=== PATIENT | male | born 1940 | race Caucasian/White ===

== ENCOUNTER 2017-05-30 14:22 | Inpatient (IN) | payer MEDICARE, BC ==
[~2017-05-30] VITALS: Ht 170.2 cm; Wt 71.2 kg
--- NOTE | 2017-05-30 13:50 | NUR ---
Pt transferred from [facility] via ambulance with admitting dx of Right Hip Fx. A/o x 3. Aware of dx. C/o right hip tolerable pain. Placed on heart monitor, controlled A-Fib on rhythm. No signs of distress but pt is on continuous Oxygen 3L via N/C. Per ambulance, pt desat to RA. Routine admission assessment initiated. Dr. Karl Drummond and Hortencia Goode notified.
[2017-05-30] MEDS ORDERED: maalox PO (15:37)
[2017-05-30] MEDS ORDERED: DIME118C3 TP (15:37)
[2017-05-30] MEDS ORDERED: FURO-151 PO (15:37)
[2017-05-30] MEDS ORDERED: MIRT15TA PO (15:37)
[2017-05-30] MEDS ORDERED: LISI2.5T2 PO (15:37)
[2017-05-30] MEDS ORDERED: TAMS-3 PO (15:37)
[2017-05-30] MEDS ORDERED: PANT40TA2 PO (15:37)
[2017-05-30] MEDS ORDERED: ISOS60TA4 PO (15:37)
[2017-05-30] MEDS ORDERED: ROSU40TA PO (15:37)
[2017-05-30] MEDS ORDERED: DIGO125T PO (15:37)
[2017-05-30] MEDS ORDERED: ZOLP5TAB2 PO (15:37)
[2017-05-30] MEDS ORDERED: METO50TA3 PO (15:37)
[2017-05-30] MEDS ORDERED: ASPI-605 PO (15:37)
[2017-05-30] MEDS ORDERED: HYDR-3326 PO (15:37)
[2017-05-30] MEDS ORDERED: mom PO (15:37)
[2017-05-30] MEDS ORDERED: zofran IVP (15:37)
[2017-05-30] MEDS ORDERED: ACET-2154 PO (15:37)
[2017-05-30] MEDS ORDERED: RANO10003 PO (15:37)
[2017-05-30 15:44] VITALS: BP 111/51
[2017-05-30] MEDS ORDERED: Z GUARD REMEDY PASTE 57 GM TUBE TOP PRN (17:30)
[2017-05-30] MEDS ORDERED: ONDANSETRON 4 MG/2 ML VIAL IV PRN (17:30)
[2017-05-30] MEDS ORDERED: ZOLPIDEM 5 MG TABLET PO PRN (17:30)
[2017-05-30] MEDS ORDERED: ACETAMINOPHEN 325 MG TABLET PO PRN (17:30)
[2017-05-30] MEDS ORDERED: MAGNESIUM HYDROXIDE 30 ML LIQUID UDC PO PRN (17:30)
--- NOTE | 2017-05-30 18:02 | NUR ---
DR CLARK RETURNED PHONE CALL AND WILL FOLLOW UP PT.
--- NOTE | 2017-05-30 18:30 | NUR ---
CRITICAL LAB REPORT RECEIVED FROM AGATHA (PIEDAD) GINA 0.378. PAGED [id number] AND AWAITING ORDERS AT THIS TIME.
--- NOTE | 2017-05-30 18:57 | NUR ---
DR SALAS MADE AWARE OF CRITICAL TOPONIN VALUE 0.378. NO NEW ORDERS AND STATED CLEARED FOR SURGERY
--- NOTE | 2017-05-30 19:35 | NUR ---
RECEIVED PT'S A/A/O X4 W/DX OF RIGHT COMMINUTED INTERTROCHANTERIC FRACTURE OF THE RIGHT HIP;HX OF ESRD W/H/D,PT HAD LEFT ARM AV SHUNT(ALREADY GOT LAST H/D ON 05/29/17;[facility]),AWAITING FOR ORTHO CONSULT W/ TO COME TO SEE HIM TODAY.PER AM SHIFT RN STATED THAT PT HAD A CRITICAL LAB VALUE OF TROPONIN'S 0.378;POWER PRESS SUPERVISOR'S AWARE/NO INTERVENTION NEED UPON THIS TIME,PT'S STABLE CONDITION NOTED. CALLED AND SPOKE TO ME AT THIS TIME;NOTIFIED HIM ABOUT PT'S LAB AND CONDITION;MD'S AWARE AND STATED THAT IT'S OK.PT'S STILL ON TELEMETRY MONITORING NOTED.
[2017-05-30] MEDS: MORPHINE SULFATE 2 MG/1 ML DISP.SYRIN IV PRN (19:41)
[2017-05-30 20:12] VITALS: BP 108/62
[2017-05-30] MEDS: MIRTAZAPINE 15 MG TABLET PO SCH (21:01)
[2017-05-30] MEDS: ATORVASTATIN 40 MG TABLET PO SCH (21:01)
--- NOTE | 2017-05-30 21:45 | NUR ---
(ORTHO) CAME TO SEE PT AT THIS TIME,MEDICAL RECORD'S REVIEWED BY AND HE WENT TO VISITED PT;MD DISCUSSED ABOUT THE PLAN OF CARE AND HE INFORMED CONSENT TO PT,CONSENT FOR SURGERY'S SIGNED BY PT,PT VERBALIZED UNDERSTANDING ABOUT THE RISK AND BENEFIT OF SX IN AM NOTED.SNACK'S GIVEN TO PT REQUEST;PT HAD VERY GOOD ORAL INTAKE UPON THIS TIME.STABLE CONDITION AND V/S.TELEMETRY'S A.FIB W/BBB.PT DENIED OF PAIN OR ANY DISCOMFORT.CONTINUED MONITORING TO PT.
[2017-05-30 22:41] LABS: BASOPHILS # (AUTO) 0.1 K/uL (0.0-8.0); EOSINOPHILS # (AUTO) 0.2 K/uL (0.0-0.7); EOSINOPHILS % (AUTO) 2.3 % (0.0-7.0); HEMATOCRIT 29.9 % (40-50); HEMOGLOBIN 9.9 G/DL (14.0-18.0); LYMPHOCYTES # (AUTO) 1.1 K/UL (0.8-4.8); MEAN CORPUSCULAR HGB CONC 33 g/dL (32.0-37.0); MEAN CORPUSCULAR VOLUME 99.9 FL (82.0-92.0); NEUTROPHILS # (AUTO) 6.8 K/UL (1.8-8.9); NEUTROPHILS % (AUTO) 73.7 % (38.5-71.5); PLATELET COUNT (AUTO) 190 K/UL (150-450); RED BLOOD CELL COUNT(AUTO) 2.99 MIL/UL (4.7-6.1); WHITE BLOOD COUNT (AUTO) 9.1 K/UL (4.0-11.2)
--- NOTE | 2017-05-31 | NUR ---
KEPT PT NPO AFTER MIDNIGHT 'S ORDER;STARTED IVF:NSS @ 60 ML/HR( 'S ORDER) WHILE NPO;EDUCATED TO PT,HE VERBALIZED UNDERSTANDING AND COOPERATIVE NOTED.PT DENIED OF PAIN OR ANY DISCOMFORT.CONTINUED MONITORING TO PT.
[2017-05-31 00:08] VITALS: BP 101/56
[2017-05-31] MEDS: MORPHINE SULFATE 2 MG/1 ML DISP.SYRIN IV PRN (01:24)
[2017-05-31 04:22] VITALS: BP 100/52
--- NOTE | 2017-05-31 06:00 | NUR ---
EDUCATED TO PT TO GIVE AM CARE AT THIS TIME;PT STATED THAT"I DON'T WANT TO DO IT NOW.IT'S COLD AND MY SURGERY IS 2 PM.IT'S TOO EARLY TO DO IT";OFFERED PT TO CLEAN HIS FACE& UPPER EXTREMITIES WITH WARM WATER,HE SAID"IT'S OK";PT'S COOPERATIVE DURING THIS TIME,DENIED OF PAIN AND STATED THAT"I DON'T NEED MORPHINE LONG I DON'T MOVE,I'M OK".NO DISTRESS NOTED IN THE SHIFT,KEPT NPO SINCE AFTER MIDNIGHT FOR SURGERY TODAY MD'S ORDER.KEPT COMFORT.MAINTAINED IVF ORDER,NO INFILTRATION AT THE SITE NOTED.TELEMETRY'S A.FIB W/BBB.
[2017-05-31 06:40] LABS: BASOPHILS % (AUTO) 0.5 % (0.0-2.0); EOSINOPHILS # (AUTO) 0.2 K/uL (0.0-0.7); EOSINOPHILS % (AUTO) 2.2 % (0.0-7.0); HEMATOCRIT 29.3 % (40-50); HEMOGLOBIN 9.8 G/DL (14.0-18.0); LYMPHOCYTES # (AUTO) 1.3 K/UL (0.8-4.8); LYMPHOCYTES % (AUTO) 14.6 % (20.5-51.5); MEAN CORPUSCULAR HEMOGLOBIN 33.4 UUG (27.0-31.0); MEAN CORPUSCULAR HGB CONC 33 g/dL (32.0-37.0); MEAN CORPUSCULAR VOLUME 100.4 FL (82.0-92.0); MONOCYTES # (AUTO) 1.1 K/UL (0.1-1.30); MONOCYTES % (AUTO) 12.7 % (0.0-11.0); NEUTROPHILS # (AUTO) 6.3 K/UL (1.8-8.9); PLATELET COUNT (AUTO) 197 K/UL (150-450); RED BLOOD CELL COUNT(AUTO) 2.92 MIL/UL (4.7-6.1); WHITE BLOOD COUNT (AUTO) 8.9 K/UL (4.0-11.2)
--- NOTE | 2017-05-31 07:00 | NUR ---
PATIENT RECEIVED WITH ON GOING HEMODIALYSIS, AWAKE ALERT AND ORIENTED X3 NO SIGNS OF ACUTE PAIN OR DISTRESS, CONTROLLED A-FIB ON MONITOR. KEPT NPO FOR SURGERY AT 2PM
[2017-05-31 07:11] LABS: ALANINE AMINOTRANSFERASE 77 U/L (16-63); ALKALINE PHOSPHATASE 56 U/L (50-136); ASPARTATE AMINOTRANSFERASE 63 U/L (15-37); BILIRUBIN,TOTAL 0.6 mg/dL (0.2-1.0); CARBON DIOXIDE 30 mmol/L (21-32); CHLORIDE 95 mmol/L (98-107); CHOLESTEROL 68 mg/dL (<200); CREATININE 6.6 mg/dL (0.6-1.3); GLUCOSE 129 mg/dL (74-106); HDL CHOLESTEROL 29 mg/dL (40-60); MAGNESIUM 2.3 mg/dL (1.8-2.4); PHOSPHOROUS 5.4 mg/dL (2.5-4.9); POTASSIUM 4.1 mmol/L (3.5-5.1); TOTAL PROTEIN, SERUM 6.3 g/dL (6.4-8.2); TRIGLYCERIDES 111 MG/DL (30-150); UREA NITROGEN, BLOOD 54 mg/dL (7-18)
[2017-05-31 07:23] LABS: THYROID STIMULATING HORMONE 7.613 mIU/mL (0.358-3.740)
[2017-05-31] MEDS ORDERED: SEVOFLURANE 250 ML BOTTLE IH ONE (07:49)
[2017-05-31] MEDS ORDERED: CEFAZOLIN 1 G VIAL MC ONE (07:49)
[2017-05-31] MEDS ORDERED: IV NORMAL SALINE 1000 ML BAG IV ONE (07:49)
[2017-05-31] MEDS ORDERED: NEOSTIGMINE METHYLSULFATE 10 MG/10 ML VIAL IV ONE (07:49)
[2017-05-31] MEDS ORDERED: ONDANSETRON 4 MG/2 ML VIAL IV ONE (07:49)
[2017-05-31] MEDS ORDERED: DEXAMETHASONE SOD PHOSPHATE 4 MG INJ IV ONE (07:49)
[2017-05-31] MEDS ORDERED: PHENYLEPHRINE 10 MG/1 ML VIAL MC ONE (07:49)
[2017-05-31] MEDS ORDERED: GLYCOPYRROLATE 0.2 MG/ML VIAL MC ONE (07:49)
[2017-05-31] MEDS: TAMSULOSIN HCL 0.4 MG CAP.SR.24H PO SCH (09:00)
[2017-05-31] MEDS: ASPIRIN EC 81 MG TABLET.DR PO SCH (09:00)
[2017-05-31] MEDS: LISINOPRIL 5 MG TABLET PO SCH (09:00)
[2017-05-31] MEDS: FUROSEMIDE 40 MG TABLET PO SCH ×2 (09:00→15:30)
--- NOTE | 2017-05-31 09:43 | NUR ---
SEEN BY ANESTHESIA DR RAMOS MADE AWARE OF LABS, AND ALSO SAID OK TO GIVE LOPRESSOR, IMDUR AND HOLD LASIX
--- NOTE | 2017-05-31 10:00 | NUR ---
HD COMPLETED TOLERATED WELL. TOTAL OUTPUT 500
[2017-05-31 10:43] VITALS: BP 99/57
[2017-05-31] MEDS: DIGOXIN 125 MCG TABLET PO SCH (11:13)
--- NOTE | 2017-05-31 12:00 | NUR ---
PATIENT OFFERED THE SECOND TIME FOR AM CARE, COMPLETELY REFUSED, NO SIGNS OF SCUTE PAIN. NO SIGNS OF DISTRESS, CONTROLLED A-FIB ON MONITOR
[2017-05-31] MEDS: ISOSORBIDE MONONITRATE 60 MG TAB.SR.24H PO SCH (12:39)
[2017-05-31] MEDS: METOPROLOL TARTRATE 50 MG TABLET PO SCH ×2 (12:40→17:00)
[2017-05-31] MEDS ORDERED: POLYMYXIN B SULFATE 500,000 UNITS, BACITRACIN 50,000 UNITS, NORMAL SALINE 20 ML MC ONE ×3 (13:30)
[2017-05-31] MEDS ORDERED: HYDROMORPHONE 2 MG/1 ML DISP.SYRIN ONE (13:42)
[2017-05-31] MEDS ORDERED: ROCURONIUM BROMIDE 50 MG/5 ML VIAL ONE (13:42)
[2017-05-31] MEDS ORDERED: MIDAZOLAM HCL 2 MG/2 ML VIAL ONE (13:42)
[2017-05-31] MEDS ORDERED: ETOMIDATE 20 MG/10 ML VIAL ONE (13:42)
[2017-05-31] MEDS ORDERED: SUCCINYLCHOLINE CHLORIDE 200 MG/10 ML VIAL ONE (13:43)
--- NOTE | 2017-05-31 14:07 | NUR ---
PATIENT WENT TO OR ACCOMPANIED BY STAFF FOR RIGHT HIP REPLACEMENT, REFUSED JEWELRY TO BE REMOVED REPORT GIVEN TO OR STAFF
--- NOTE | 2017-05-31 15:31 | NUR ---
LASIX NOT GIVEN PATIENT STILL IN OR
--- NOTE | 2017-05-31 15:42 | NUR ---
PATIENT STILL IN OR
[2017-05-31] MEDS ORDERED: IV NS 1000 ML 1,000 ML IV PRN ×2 (17:30)
[2017-05-31] MEDS ORDERED: HYDROCODONE/APAP 5-325MG TABLET PO PRN (17:30)
--- NOTE | 2017-05-31 18:02 | NUR ---
PATIENT STILL IN RECOVERY
--- NOTE | 2017-05-31 18:26 | NUR ---
BACK FROM SURGERY POST ORIF RIGHT HIP AWAKE ALERT AND RESPONSIVE, DENIES PAIN OR SOB. DRESSING RIGHT HIP INTACT, ABLE TO WIGGLE RIGHT TOES AND WITH GOOD CAPILLARY REFILL, REMAINS A-FIB CONTROLLED AT A RATE OF 85 OBSERVED
[2017-05-31 18:28] VITALS: BP 99/61
--- NOTE | 2017-05-31 19:00 | NUR ---
Bedside reporting with LEIF Reyez. Received patient on bed appears sleeping but easily arousable when name called. Denies any pain at this time. Right hip dressing clean, dry and intact. Capillary refill good with good pedal pulses. Safety measures and afll precaution maintained. Continue care as planned.
[2017-05-31 19:16] LABS: BASOPHILS % (AUTO) 0.2 % (0.0-2.0); EOSINOPHILS # (AUTO) 0.2 K/uL (0.0-0.7); EOSINOPHILS % (AUTO) 1.7 % (0.0-7.0); HEMATOCRIT 27.7 % (40-50); HEMOGLOBIN 9.3 G/DL (14.0-18.0); LYMPHOCYTES # (AUTO) 0.4 K/UL (0.8-4.8); LYMPHOCYTES % (AUTO) 3.6 % (20.5-51.5); MEAN CORPUSCULAR HEMOGLOBIN 33.8 UUG (27.0-31.0); MEAN CORPUSCULAR HGB CONC 34 g/dL (32.0-37.0); MEAN CORPUSCULAR VOLUME 100.4 FL (82.0-92.0); MONOCYTES # (AUTO) 0.5 K/UL (0.1-1.30); MONOCYTES % (AUTO) 4.5 % (0.0-11.0); NEUTROPHILS # (AUTO) 9.7 K/UL (1.8-8.9); PLATELET COUNT (AUTO) 157 K/UL (150-450); RED BLOOD CELL COUNT(AUTO) 2.76 MIL/UL (4.7-6.1); WHITE BLOOD COUNT (AUTO) 10.8 K/UL (4.0-11.2)
[2017-05-31 19:19] LABS: CARBON DIOXIDE 28 mmol/L (21-32); CHLORIDE 102 mmol/L (98-107); CREATININE 4.8 mg/dL (0.6-1.3); GLUCOSE 151 mg/dL (74-106); POTASSIUM 4.5 mmol/L (3.5-5.1); UREA NITROGEN, BLOOD 37 mg/dL (7-18)
[2017-05-31 20:00] VITALS: BP 95/51
[2017-05-31] MEDS: MIRTAZAPINE 15 MG TABLET PO SCH (20:48)
[2017-05-31] MEDS: ATORVASTATIN 40 MG TABLET PO SCH (20:48)
[2017-05-31] MEDS ORDERED: ENOXAPARIN SODIUM 40 MG/0.4 ML DISP.SYRIN SQ SCH (21:00)
[2017-05-31] MEDS ORDERED: CEFAZOLIN 1 G in PREMIXED 1 EACH IV SCH (22:00)
[2017-05-31] MEDS: MORPHINE SULFATE 4 MG/1 ML DISP.SYRIN IV PRN (23:11)
--- NOTE | 2017-05-31 23:11 | NUR ---
Medicated for pain after been turned and repositioned for comfort. Will monitor.
[2017-06-01] VITALS: BP 140/60
[2017-06-01] MEDS: MORPHINE SULFATE 4 MG/1 ML DISP.SYRIN IV PRN ×2 (03:03→21:39)
[2017-06-01 04:00] VITALS: BP 104/56
--- NOTE | 2017-06-01 05:40 | NUR ---
Slept at long interval. Medicated for pain with relief. No further complaint presented. Made comfortable at all times. No active bleedingnoted from surgical site. No significant event reported all night. Continue care as planned.
--- NOTE | 2017-06-01 06:49 | NUR ---
Bedside reporting with LEIF Reyez
--- NOTE | 2017-06-01 07:20 | NUR ---
AWAKE ALERT AND VERBALLY RESPONSIVE, NO SIGNS OF DISTRESS OR ACUTE PAIN, ABLE TO WIGGLE TOES AND WITH GOOD SENSATION AND GOOD CAPILLARY REFILL RIGHT LEG, DRESSING RIGHT HIP INTACT NO SIGNS OF BLEEDING, REMAINS A-FIB CONTROLLED ON MONITOR
[2017-06-01] MEDS: LISINOPRIL 5 MG TABLET PO SCH (08:53)
[2017-06-01] MEDS: ASPIRIN EC 81 MG TABLET.DR PO SCH (08:53)
[2017-06-01] MEDS: HEPARIN SODIUM,PORCINE 5,000 UNITS/ML VIAL SQ SCH ×2 (08:54→21:10)
[2017-06-01] MEDS: ISOSORBIDE MONONITRATE 60 MG TAB.SR.24H PO SCH (08:54)
[2017-06-01] MEDS: METOPROLOL TARTRATE 50 MG TABLET PO SCH ×2 (08:56→17:00)
[2017-06-01] MEDS: FUROSEMIDE 40 MG TABLET PO SCH ×2 (08:57→17:00)
[2017-06-01] MEDS: TAMSULOSIN HCL 0.4 MG CAP.SR.24H PO SCH (08:57)
[2017-06-01] MEDS: DIGOXIN 125 MCG TABLET PO SCH (08:58)
[2017-06-01 09:37] LABS: CARBON DIOXIDE 28 mmol/L (21-32); CHLORIDE 98 mmol/L (98-107); CREATININE 5.5 mg/dL (0.6-1.3); GLUCOSE 155 mg/dL (74-106); MAGNESIUM 2.4 mg/dL (1.8-2.4); PHOSPHOROUS 6.1 mg/dL (2.5-4.9); POTASSIUM 4.9 mmol/L (3.5-5.1); UREA NITROGEN, BLOOD 47 mg/dL (7-18)
[2017-06-01 09:40] LABS: EOSINOPHILS # (AUTO) 0.1 K/uL (0.0-0.7); EOSINOPHILS % (AUTO) 0.8 % (0.0-7.0); HEMOGLOBIN 10.1 G/DL (14.0-18.0); LYMPHOCYTES # (AUTO) 0.5 K/UL (0.8-4.8); LYMPHOCYTES % (AUTO) 5.1 % (20.5-51.5); MEAN CORPUSCULAR HGB CONC 33 g/dL (32.0-37.0); MONOCYTES # (AUTO) 0.7 K/UL (0.1-1.30); MONOCYTES % (AUTO) 7.4 % (0.0-11.0); NEUTROPHILS # (AUTO) 8.7 K/UL (1.8-8.9); NEUTROPHILS % (AUTO) 86.7 % (38.5-71.5)
[2017-06-01 09:44] LABS: PLATELET COUNT (AUTO) 241 K/UL (150-450); RED BLOOD CELL COUNT(AUTO) 3.07 MIL/UL (4.7-6.1)
[2017-06-01 11:15] VITALS: BP 102/74
--- NOTE | 2017-06-01 12:58 | NUR ---
DR POLLACK IN WITH ORDER FOR HD IN AM, PATIENT REMAINS STABLE FROM AM ASSESSMENT
--- NOTE | 2017-06-01 13:57 | NUR ---
SEEN BY PHYSICAL THERAPY ABLE TO WALK WITH FFW TOTAL 10 STEPS AWAY FROM BED THE FELT VERY DIZZY. PUT BACK TO BD WITH PRECAUTIONARY MEASURES BP 100/54
[2017-06-01 15:08] VITALS: BP 99/66
--- NOTE | 2017-06-01 17:44 | NUR ---
METOPROLOL AND LASIX NOT GIVEN BP 92/60, ASYMPTOMATIC
--- NOTE | 2017-06-01 18:19 | NUR ---
NO ACUTE CHANGE, CONTINUE POST-OP ORIF OBSERVATION, NO SOB, NO ACUTE PAIN. DRESSING RIGHT HIP INTACT WITH TRACE AMOUNT OF SEROUS DRAINAGE. CONTINUE ICE PACK RIGHT HIP
--- NOTE | 2017-06-01 19:00 | NUR ---
Bedside reporting with LEIF Reyez. Sleeping during initial rounds. No s/s of respiratory distress noted. Right hip dressing dry and intact.Safety measures and fall precaution maintained.Continue care as planned.
--- NOTE | 2017-06-01 19:53 | NUR ---
BP 92/54; 81 at this time.
[2017-06-01 19:54] VITALS: BP 92/54
[2017-06-01] MEDS: ATORVASTATIN 40 MG TABLET PO SCH (21:08)
[2017-06-01] MEDS: MIRTAZAPINE 15 MG TABLET PO SCH (21:08)
[2017-06-02] VITALS: BP 94/50
[2017-06-02 04:00] VITALS: BP 94/59
--- NOTE | 2017-06-02 06:49 | NUR ---
Slept at long interval. Medicated once for pain with relief. No further complaint presented. All needs attended and met. No active bleeding noted on surgical site. BP on the 90's. Continue care as planned.
--- NOTE | 2017-06-02 07:01 | NUR ---
Bedside reporting with LEIF Sauceda
[2017-06-02 07:03] LABS: CARBON DIOXIDE 28 mmol/L (21-32); CHLORIDE 94 mmol/L (98-107); CREATININE 6.6 mg/dL (0.6-1.3); GLUCOSE 133 mg/dL (74-106); MAGNESIUM 2.3 mg/dL (1.8-2.4); PHOSPHOROUS 6.7 mg/dL (2.5-4.9); POTASSIUM 4.7 mmol/L (3.5-5.1); UREA NITROGEN, BLOOD 64 mg/dL (7-18)
--- NOTE | 2017-06-02 07:07 | NUR ---
RECEIVED PATIENT WITH DIALYSIS IN PROGRESS ORDERED AND PER THE ROTOGRAVURE PRESS OPERATOR HIS BLOOD PRESSURE IS LOW BUT PATIENT IS ASSYMPTOMATIC AND IS TOLERATING HIS DIALYSIS AT THIS TIME WILL CONTINUE TO OBSERVE.
[2017-06-02 07:25] LABS: BASOPHILS % (AUTO) 0.3 % (0.0-2.0); EOSINOPHILS # (AUTO) 0.1 K/uL (0.0-0.7); EOSINOPHILS % (AUTO) 0.7 % (0.0-7.0); HEMATOCRIT 30.1 % (40-50); HEMOGLOBIN 10.1 G/DL (14.0-18.0); LYMPHOCYTES # (AUTO) 0.9 K/UL (0.8-4.8); LYMPHOCYTES % (AUTO) 9.2 % (20.5-51.5); MEAN CORPUSCULAR HEMOGLOBIN 33.8 UUG (27.0-31.0); MEAN CORPUSCULAR HGB CONC 34 g/dL (32.0-37.0); MEAN CORPUSCULAR VOLUME 100.6 FL (82.0-92.0); MONOCYTES % (AUTO) 9.9 % (0.0-11.0); NEUTROPHILS # (AUTO) 7.8 K/UL (1.8-8.9); NEUTROPHILS % (AUTO) 79.9 % (38.5-71.5); PLATELET COUNT (AUTO) 227 K/UL (150-450); RED BLOOD CELL COUNT(AUTO) 2.99 MIL/UL (4.7-6.1); WHITE BLOOD COUNT (AUTO) 9.8 K/UL (4.0-11.2)
[2017-06-02] MEDS: METOPROLOL TARTRATE 50 MG TABLET PO SCH ×2 (09:00→16:11)
[2017-06-02] MEDS: ISOSORBIDE MONONITRATE 60 MG TAB.SR.24H PO SCH (09:00)
[2017-06-02] MEDS: LISINOPRIL 5 MG TABLET PO SCH (09:00)
--- NOTE | 2017-06-02 09:38 | NUR ---
PATIENT REMAIN ON DIALYSIS AT THIS TIME AM MEDICATIONS NOT GIVEN YET .
[2017-06-02] MEDS: TAMSULOSIN HCL 0.4 MG CAP.SR.24H PO SCH (10:05)
[2017-06-02] MEDS: ASPIRIN EC 81 MG TABLET.DR PO SCH (10:05)
[2017-06-02] MEDS: DIGOXIN 125 MCG TABLET PO SCH (10:05)
[2017-06-02] MEDS: FUROSEMIDE 40 MG TABLET PO SCH ×2 (10:05→16:11)
[2017-06-02] MEDS: MORPHINE SULFATE 4 MG/1 ML DISP.SYRIN IV PRN ×2 (10:06→20:34)
[2017-06-02] MEDS: HEPARIN SODIUM,PORCINE 5,000 UNITS/ML VIAL SQ SCH ×2 (10:07→20:34)
--- NOTE | 2017-06-02 10:48 | NUR ---
DIALYSIS COMPLETED AND 500ML WAS REMOVED AND PATIENT TOLERATED PROCEDURE WELL
--- NOTE | 2017-06-02 13:00 | NUR ---
DR CLARK HERE TO SEE PATIENT AND STATED THAT PATIENT SHOULD MAKE AN APPOINTMENT TO SEE HIM 2 WEEKS POST OP.
[2017-06-02 16:07] VITALS: BP 87/51
--- NOTE | 2017-06-02 16:08 | NUR ---
BLOOD PRESSURE AT THIS TIME IS 87/51 PATIENT IS ASSYMPTOMATIC ALERT AND ORIENTED WITH HER SIGNIFICANT OTHER NANCY AT HIS BEDSIDE DR YONY MARRUFO HERE AND NOTIFIED AND STATED THAT THERE IS NO NEW ORDERS AT THIS TIME.WILL CONTINUE TO OBSERVE PATIENT.
--- NOTE | 2017-06-02 17:43 | NUR ---
APPETITE IS POOR BUT PATIENT STATED WILL PREFER A SANDWISH INSTEAD SO KITCHEN NOTIFIED.
--- NOTE | 2017-06-02 19:00 | NUR ---
Bedside reporting with LEIF Sauceda. Received patient awake and alert. Denies any pain at this time. Watching TV. Right hip dressing dry and intact.. Continue care as planned.
[2017-06-02 20:00] VITALS: BP 96/64
[2017-06-02] MEDS: ATORVASTATIN 40 MG TABLET PO SCH (20:34)
[2017-06-02] MEDS: MIRTAZAPINE 15 MG TABLET PO SCH (20:34)
[2017-06-03] MEDS: MORPHINE SULFATE 4 MG/1 ML DISP.SYRIN IV PRN (00:22)
[2017-06-03 05:30] VITALS: BP 98/69
--- NOTE | 2017-06-03 05:32 | NUR ---
Slept good. Medicated twice for pain with relief. No further complaint presented. Right hip dressing remain dry and intact. No bleeding reported on incision site. No s/s of incision site infection noted. BP remains on the mid 90's. All needs attended and met. Continue care as planned.
[2017-06-03 06:48] LABS: BASOPHILS % (AUTO) 0.3 % (0.0-2.0); EOSINOPHILS # (AUTO) 0.1 K/uL (0.0-0.7); EOSINOPHILS % (AUTO) 1.2 % (0.0-7.0); HEMATOCRIT 29.4 % (40-50); HEMOGLOBIN 9.6 G/DL (14.0-18.0); LYMPHOCYTES # (AUTO) 1.2 K/UL (0.8-4.8); LYMPHOCYTES % (AUTO) 12.6 % (20.5-51.5); MEAN CORPUSCULAR HEMOGLOBIN 33.3 UUG (27.0-31.0); MEAN CORPUSCULAR HGB CONC 33 g/dL (32.0-37.0); MEAN CORPUSCULAR VOLUME 101.7 FL (82.0-92.0); MONOCYTES # (AUTO) 1.1 K/UL (0.1-1.30); MONOCYTES % (AUTO) 11.8 % (0.0-11.0); NEUTROPHILS # (AUTO) 7.2 K/UL (1.8-8.9); NEUTROPHILS % (AUTO) 74.1 % (38.5-71.5); PLATELET COUNT (AUTO) 219 K/UL (150-450); RED BLOOD CELL COUNT(AUTO) 2.89 MIL/UL (4.7-6.1); WHITE BLOOD COUNT (AUTO) 9.6 K/UL (4.0-11.2)
[2017-06-03 07:12] LABS: CARBON DIOXIDE 30 mmol/L (21-32); CHLORIDE 96 mmol/L (98-107); CREATININE 5.5 mg/dL (0.6-1.3); GLUCOSE 114 mg/dL (74-106); MAGNESIUM 2.4 mg/dL (1.8-2.4); PHOSPHOROUS 5.1 mg/dL (2.5-4.9); POTASSIUM 4.2 mmol/L (3.5-5.1); UREA NITROGEN, BLOOD 57 mg/dL (7-18)
[2017-06-03] MEDS: METOPROLOL TARTRATE 50 MG TABLET PO SCH ×2 (09:00→16:04)
[2017-06-03] MEDS: LISINOPRIL 5 MG TABLET PO SCH (09:00)
[2017-06-03] MEDS: ISOSORBIDE MONONITRATE 60 MG TAB.SR.24H PO SCH (09:00)
[2017-06-03] MEDS: DIGOXIN 125 MCG TABLET PO SCH (09:00)
[2017-06-03] MEDS: FUROSEMIDE 40 MG TABLET PO SCH ×2 (09:00→16:04)
[2017-06-03] MEDS: TAMSULOSIN HCL 0.4 MG CAP.SR.24H PO SCH (09:47)
[2017-06-03] MEDS: ASPIRIN EC 81 MG TABLET.DR PO SCH (09:47)
[2017-06-03] MEDS: HEPARIN SODIUM,PORCINE 5,000 UNITS/ML VIAL SQ SCH ×2 (09:48→21:12)
[2017-06-03 09:57] LABS: BAND % (MANUAL) 1 % (0-10); EOSINOPHILS % (MANUAL) 4 % (0-8); LYMPHOCYTES % (MANUAL) 8 % (20-40); MONOCYTES % (MANUAL) 5 % (2-10); NEUTROPHILS % (MANUAL) 82 % (42-75)
[2017-06-03 11:36] VITALS: BP 91/52
--- NOTE | 2017-06-03 14:53 | NUR ---
pt's bp is 97/58. per Dr. Hoda mora to give pain medication morphine 3mg iv Addendum: 06/03/17 at 1910 by ROXI BIRD RN NORCO WAS GIVEN TO THE PT, "OK" PER DR. MARRUFO
[2017-06-03 15:43] VITALS: BP 97/67
--- NOTE | 2017-06-03 16:49 | NUR ---
The patient will be discharged today to [facility] [ ; [id number] [place] [address]] via [facility]. Spoke to the patient and his emergency contact lens blocker, Genesis [ ; [phone]], and they were both in agreement with his discharge plan because it is near where they live. Also provided them with a [employer] booklet for future reference. His RN, Noemi, is aware of his discharge plan.
--- NOTE | 2017-06-03 19:00 | NUR ---
PT IS LAYING IN BED COMFORTABLY. NO S/S OF RESPIRATORY DISTRESS NOTED. NO PAIN NOTED. ALL SAFETY NEEDS ARE MET. PT REPORT IS GIVEN TO NOC NURSE. IV INTACT/PATENT.
--- NOTE | 2017-06-03 19:10 | NUR ---
Bedside reporting with LEIF taylor. Received patient awake, talking on his Cell phone. No s/s of pain/discomforts noted. Safety measures and fall precaution maintained. Continue care as planned.
--- NOTE | 2017-06-03 19:45 | NUR ---
Patient made aware that he's going to be discharge tonight at [facility] per MD. Patient was beed informed by his PMD about the plan already.
[2017-06-03 20:31] VITALS: BP 102/65
--- NOTE | 2017-06-03 21:10 | NUR ---
Due meds given.
[2017-06-03] MEDS: MIRTAZAPINE 15 MG TABLET PO SCH (21:11)
[2017-06-03] MEDS: ATORVASTATIN 40 MG TABLET PO SCH (21:11)
--- NOTE | 2017-06-03 21:27 | NUR ---
Report given to JADA [facility] of [facility].
--- NOTE | 2017-06-03 21:48 | NUR ---
Report given to EMT.
--- NOTE | 2017-06-03 22:04 | NUR ---
To [facility] via Ambulance. VSS. Denies any pain/discomforts. No s/s of respiratory distress noted.
== END 2017-06-03 22:09 | DRG 480 ==
LOC: MED 14:22 → TELE 14:40 → MED 06-02 11:35
PROVIDERS: ATTEND Nurse Practitioner Acute Care
PROC: 5A1D60Z (ICD-10-PCS; 2017-05-31)
PROC: 0QS606Z Reposition Right Upper Femur with Intramedullary Internal Fixation Device, Open Approach (ICD-10-PCS; principal; 2017-06-03)
DX: S72.141A Displaced intertrochanteric fracture of right femur, initial encounter for closed fracture (principal); I50.43 Acute on chronic combined systolic (congestive) and diastolic (congestive) heart failure; I48.2 Chronic atrial fibrillation; N18.6 End stage renal disease; I13.0 Hypertensive heart and chronic kidney disease with heart failure and stage 1 through stage 4 chronic kidney disease, or unspecified chronic kidney disease; S72.21XA Displaced subtrochanteric fracture of right femur, initial encounter for closed fracture; W18.30XA Fall on same level, unspecified, initial encounter; Y92.89 Other specified places as the place of occurrence of the external cause; I25.10 Atherosclerotic heart disease of native coronary artery without angina pectoris; Z95.1 Presence of aortocoronary bypass graft; Z79.01 Long term (current) use of anticoagulants; Z99.2 Dependence on renal dialysis; D63.1 Anemia in chronic kidney disease; Z90.49 Acquired absence of other specified parts of digestive tract; I25.2 Old myocardial infarction; Z98.61 Coronary angioplasty status
CPT/HCPCS: 36415; 70030-TC; 72192; 73501; 73503; 73521; 76000; 83735; 84100; 84443; 85025; 85730; 86850; 86900; 86901; 90937; 97110; 97116; 97165; 97530; A4649; C1713; C1769; J0690; J1100; J1644; J2270; J2370; J2405; J2710; J3490; J7030; J7050